=== PATIENT | female | born 1955 | race Caucasian/White ===

== ENCOUNTER → 2017-05-04 | Outpatient (CLI) | payer BC ==
[~2017-05-04] MED LIST: LIPITOR20 MG PO; ZESTRIL 10MG10 MG PO
== END ==
LOC: MC.RAD 15:00
DX: Z12.31 Encounter for screening mammogram for malignant neoplasm of breast (principal)

== ENCOUNTER → 2018-05-25 | Outpatient (CLI) | payer BC | LOC: MC.RAD 15:00 | DX: Z12.31 Encounter for screening mammogram for malignant neoplasm of breast (principal) ==

== ENCOUNTER → 2019-07-16 | Outpatient (CLI) | payer BC | LOC: MC.RAD 13:15 | DX: Z12.31 Encounter for screening mammogram for malignant neoplasm of breast (principal) ==

== ENCOUNTER → 2020-07-17 | Outpatient (CLI) | payer BC | LOC: MC.RAD 13:30 | DX: Z12.31 Encounter for screening mammogram for malignant neoplasm of breast (principal) ==

== ENCOUNTER → 2021-08-07 | Outpatient (CLI) | payer BC | LOC: MC.RAD 08:30 | DX: Z12.31 Encounter for screening mammogram for malignant neoplasm of breast (principal); R92.0 Mammographic microcalcification found on diagnostic imaging of breast ==

== ENCOUNTER → 2021-08-11 | Outpatient (CLI) | payer BC | LOC: MC.RAD 11:01 | DX: R92.0 Mammographic microcalcification found on diagnostic imaging of breast (principal) ==

== ENCOUNTER → 2021-08-19 | Outpatient (CLI) | payer BC | LOC: MC.RAD 08:22 | DX: D05.11 Intraductal carcinoma in situ of right breast (principal); R92.0 Mammographic microcalcification found on diagnostic imaging of breast ==

== ENCOUNTER → 2021-09-29 | Outpatient (CLI) | payer BC ==
[~2021-09-29] MED LIST changes: +GLUCOPHAGE500 MG/TAB PO; +NORCO 325 MG-51 TAB PO
== END ==
LOC: MC.RAD 13:47
DX: C50.911 Malignant neoplasm of unspecified site of right female breast (principal)
CPT/HCPCS: C1769

== ENCOUNTER 2021-09-30 05:26 | Day surgery (SDC) | payer BC ==
[~2021-09-30] VITALS: Ht 177.8 cm; Wt 120.5 kg
[~2021-09-30 05:26] MED LIST changes: -GLUCOPHAGE500 MG/TAB PO; -NORCO 325 MG-51 TAB PO
[2021-09-30] MEDS ORDERED: GLUCOPHAGE500 MG/TAB PO (06:04)
[2021-09-30 06:16] VITALS: BP 158/87; PULSE 73; TEMP 97.3
[2021-09-30] MEDS ORDERED: NORCO 325 MG-51 TAB PO (08:26)
[2021-09-30 08:30] VITALS: BP 147/80; PULSE 74; TEMP 97.3
--- NOTE | 2021-09-30 08:30 | NUR ---
PT BACK FROM OR PER CART. RECEIVED REPORT FROM DEMAR AND BERNADETTE. VS OBTAINED. REORIENTED PT TO ROOM AND CALL LIGHT. DENIES ANY NEEDS AT THIS TIME. AT BEDSIDE. WILL CONTINUE TO MONITOR.
[2021-09-30 08:45] VITALS: BP 141/72; PULSE 62
--- NOTE | 2021-09-30 08:45 | NUR ---
PT CONTINUES TO REST COMFORTABLY. DENIES ANY NEEDS AT THIS TIME. WILL CONTINUE TO MONITOR.
[2021-09-30 09:00] VITALS: BP 134/78; PULSE 63
--- NOTE | 2021-09-30 09:00 | NUR ---
PT CONTINUES TO REST COMFORTABLY. PT TOLERATING GRAPE JUICE WITHOUT DIFFICULTY. WILL CONTINUE TO MONITOR PT.
[2021-09-30 09:15] VITALS: BP 127/73; PULSE 56
--- NOTE | 2021-09-30 09:15 | NUR ---
PT CONTINUES TO TOLERATE PO WITHOUT DIFFICULTY. DENIES ANY OTHER NEEDS AT THIS TIME.
[2021-09-30 09:30] VITALS: BP 142/78; PULSE 63
--- NOTE | 2021-09-30 09:30 | NUR ---
PT CONTINUES TO RESTS COMFORTABLY. TOLERATING MUFFIN AND JUICE. PT STATES SHE IS READY FOR DC. PREPARING PT FOR DISCHARGE.
--- NOTE | 2021-09-30 09:45 | NUR ---
DISCHARGE EDUCATION COMPLETED WITH PT AND HER . VERBALIZED UNDERSTANDING OF HOME AND FOLLOW UP CARE. ALL QUESTIONS ANSWERED. DISCHARGE PAPERWORK GIVEN TO PT'S .
--- NOTE | 2021-09-30 10:00 | NUR ---
PT OFF UNIT PER WC. PT DISCHARGE TO HOME WITH PER PERSONAL VEHICLE.
== END 2021-09-30 10:00 | disposition home or self-care (01) ==
LOC: SDCO 05:26
DX: D05.11 Intraductal carcinoma in situ of right breast (principal); N62 Hypertrophy of breast; Z80.3 Family history of malignant neoplasm of breast
CPT/HCPCS: A4648; J0690; J2001; J2250; J2405; J2704; J3010; J7120

== ENCOUNTER 2022-11-01 13:44 | Emergency (ER) | payer MEDICARE, BC ==
[~2022-11-01] VITALS: Ht 177.8 cm; Wt 115.5 kg
[~2022-11-01 13:44] MED LIST changes: +GLUCOPHAGE500 MG/TAB PO; +NORCO 325 MG-51 TAB PO
[2022-11-01 13:56] VITALS: TEMP 98.4
[2022-11-01 14:19] LABS: COLLECTION METHOD CLEAN CATCH
[2022-11-01 14:25] LABS: BASO # 0.1 K/mm3 (0.0-0.2); BASO % 0.5 % (0.0-2.0); EOS # 0.1 K/mm3 (0.0-0.7); EOS % 0.9 % (0.0-4.0); GRAN # 6.7 K/mm3 (1.4-6.5); HEMOGLOBIN 12.8 g/dl (12.5-16.0); LYMPH # 1.7 K/mm3 (1.2-3.4); MEAN CELL VOLUME 89 fl (80.0-100.0); MEAN CORPUSCULAR HEMOGLOBIN 30 pg (27-31); MEAN CORPUSCULAR HGB CONC 34 g/dl (33.0-37.0); MEAN PLATELET VOLUME 13.1 fl (7.4-10.4); MONO # 0.7 K/mm3 (0.1-0.6); MONO % 7.3 % (1.7-9.3); PLATELET COUNT 205 K/mm3 (130-400); RED BLOOD COUNT 4.26 M/mm3 (4.10-5.30); REDCELL DISTRIBUTION WIDTH-CV 13.2 % (11.5-14.5)
[2022-11-01 14:28] LABS: MUCOUS Present (NOT PRESENT); SQUAMOUS EPITHELIAL 0-2 /hpf (0-10); URINE BACTERIA None Seen /hpf (NONE SEEN); URINE RBC 0-2 /hpf (0-2)
[2022-11-01 14:31] LABS: URINE APPEARANCE Hazy (CLEAR/HAZY); URINE COLOR Yellow (YELLOW)
[2022-11-01 14:32] LABS: URINE BLOOD Negative (NEGATIVE); URINE GLUCOSE 2+ (NEGATIVE); URINE KETONE 1+ (NEGATIVE); URINE NITRATE Negative (NEGATIVE); URINE PROTEIN(semi-quant) Negative (NEGATIVE); URINE UROBILINOGEN 0.2 (NEGATIVE)
[2022-11-01 14:44] LABS: ALANINE AMINOTRANSFERASE 43 U/L (0-55); ALBUMIN 3.5 gm/dL (3.4-4.8); ALKALINE PHOSPHATASE 70 U/L (40-150); ANION GAP 12 mmol/L (7-16); AST,SGOT 22 U/L (5-34); BILIRUBIN,TOTAL 0.3 mg/dL (0.2-1.2); BLOOD UREA NITROGEN 11 mg/dL (10-20); CALCIUM 8.9 mg/dL (8.4-10.2); CARBON DIOXIDE 21 mmol/L (23-31); CHLORIDE 105 mmol/L (98-107); CREATININE, serum 1.12 mg/dL (0.57-1.11); LIPASE 24 U/L (8-78); POTASSIUM 4.2 mmol/L (3.5-4.5); SODIUM 138 mmol/L (136-145); TOTAL PROTEIN 6.2 gm/dL (6.2-8.1)
[2022-11-01 14:56] LABS: ACETONE,SERUM NEGATIVE
[2022-11-01 14:57] LABS: GLUCOSE 505 mg/dL (70-99)
[2022-11-01 16:48] VITALS: BP 121/86; PULSE 91
== END 2022-11-01 16:49 | disposition home or self-care (01) ==
LOC: COL.ER 13:44
PROVIDERS: Emergency Medicine
DX: E11.65 Type 2 diabetes mellitus with hyperglycemia (principal); Z79.84 Long term (current) use of oral hypoglycemic drugs; Z28.310 Unvaccinated for COVID-19
CPT/HCPCS: J1815; J7030

== ENCOUNTER → 2023-08-17 | Outpatient (CLI) | payer MEDICARE | LOC: MC.RAD 08:00 | DX: Z12.31 Encounter for screening mammogram for malignant neoplasm of breast (principal) ==